=== PATIENT | female | born 1995 | race African-American/Black ===

== ENCOUNTER 2017-05-15 12:24 | Emergency (ER) | payer OTHER ==
[~2017-05-15] VITALS: Ht 172.7 cm; Wt 61.2 kg
[~2017-05-15 12:24] MED LIST: PREDNISONE 20 M20 MG PO; ULTRAM 50MG TAB50 MG PO; VENTOLIN HFA 1818 GM INH
[2017-05-15 12:44] LABS: URINE BILIRUBIN NEGATIVE (Negative); URINE BLOOD 3+ (Negative); URINE COLOR YELLOW; URINE GLUCOSE-RANDOM* NEGATIVE (Negative); URINE KETONES NEGATIVE (Negative); URINE LEUKOCYTES-REFLEX NEGATIVE (Negative); URINE PROTEIN (DIPSTICK) NEGATIVE (Negative); URINE SPECIFIC GRAVITY 1.025 (1.003-1.035); URINE UROBILINOGEN 0.2 E.U./dl (0.2-1.0)
[2017-05-15] MEDS ORDERED: ALBUTEROL2.5 MG/31 INH (12:51)
[2017-05-15 12:56] LABS: SQUAMOUS 4-10 Moderate /LPF (0-3)
[2017-05-15 12:57] LABS: CASTS None Seen /LPF (None Seen)
[2017-05-15 12:58] LABS: CRYSTALS None Seen /LPF (None Seen); URINE RBC 3-10 Few /HPF (0-2); URINE WBC-REFLEX 6-15 Few /HPF (0-5)
[2017-05-15 13:03] LABS: ABSOLUTE NEUTROPHILS 3.3 thou/uL (1.4-8.2); BASOPHILS 0.7 % (0.0-2.0); EOSINOPHILS 3.7 % (0.0-3.0); HEMATOCRIT 39.2 % (37.0-47.0); MANUAL DIFF NO; MCH 31.7 pg (26.0-34.0); MCHC 33.1 g/dL (28.0-37.0); MCV 95.9 fL (80.0-100.0); PLATELET COUNT 352 thou/uL (150-400); POLYS 47.6 % (36.0-66.0); RBC 4.09 mil/uL (4.20-5.00); RDW 12.9 % (10.5-14.5); WBC 6.9 thou/uL (4.0-11.0)
[2017-05-15 13:10] LABS: CALCIUM 9.6 mg/dL (8.5-10.1); POTASSIUM 3.9 mmol/L (3.5-5.1)
[2017-05-15 13:16] LABS: ALBUMIN 3.9 g/dL (3.4-5.0); TOTAL BILIRUBIN 0.4 mg/dL (<0.1-1.0); TOTAL PROTEIN 8.2 g/dL (6.4-8.2)
[2017-05-15] MEDS ORDERED: BENTYL 20 MG TA20 M1 PO (13:27)
[2017-05-15] MEDS ORDERED: MOBIC15 MG PO (13:27)
[2017-05-15 14:00] VITALS: BP 130/78
[2017-05-16 19:07] LABS: CHLAMYDIA TRACHOMATIS-PCR Negative (Negative); NEISSERIA GONORRHEA-PCR Negative (Negative)
== END 2017-05-15 14:01 | disposition home or self-care (01) ==
LOC: ER 12:24
PROVIDERS: Physician Assistant
DX: N93.8 Other specified abnormal uterine and vaginal bleeding (principal); R10.30 Lower abdominal pain, unspecified; J45.909 Unspecified asthma, uncomplicated; F10.99 Alcohol use, unspecified with unspecified alcohol-induced disorder

== ENCOUNTER 2017-06-01 20:58 | Emergency (ER) | payer OTHER ==
[~2017-06-01] VITALS: Ht 172.7 cm; Wt 63.5 kg
[~2017-06-01 20:58] MED LIST changes: +ALBUTEROL2.5 MG/31 INH; +BENTYL 20 MG TA20 M1 PO; +MOBIC15 MG PO
[2017-06-01 22:07] LABS: URINE BILIRUBIN NEGATIVE (Negative); URINE BLOOD NEGATIVE (Negative); URINE COLOR YELLOW; URINE GLUCOSE-RANDOM* NEGATIVE (Negative); URINE KETONES NEGATIVE (Negative); URINE LEUKOCYTES-REFLEX 1+ (Negative); URINE PROTEIN (DIPSTICK) NEGATIVE (Negative); URINE UROBILINOGEN 0.2 E.U./dl (0.2-1.0)
[2017-06-01] MEDS ORDERED: TRAMADOL 50 MG50 MG PO (22:25)
[2017-06-01] MEDS ORDERED: NAPROSYN500 MG PO (22:25)
[2017-06-01] MEDS ORDERED: DOXYCYCLINE 10100 MG PO (22:25)
[2017-06-01 22:31] LABS: SQUAMOUS 4-10 Moderate /LPF (0-3)
[2017-06-01 22:32] LABS: AMORPHOUS URATES Few /LPF (None Seen); CASTS None Seen /LPF (None Seen); URINE RBC None Seen /HPF (0-2); URINE WBC-REFLEX 0-5 Rare /HPF (0-5)
[2017-06-01 22:39] VITALS: BP 118/89
== END 2017-06-01 22:47 | disposition home or self-care (01) ==
LOC: ER 20:58
PROVIDERS: Emergency Medicine
DX: Z20.2 Contact with and (suspected) exposure to infections with a predominantly sexual mode of transmission (principal); R10.30 Lower abdominal pain, unspecified; G43.909 Migraine, unspecified, not intractable, without status migrainosus; J45.909 Unspecified asthma, uncomplicated; F10.99 Alcohol use, unspecified with unspecified alcohol-induced disorder

== ENCOUNTER 2017-08-12 13:33 | Emergency (ER) | payer OTHER ==
[~2017-08-12] VITALS: Ht 172.7 cm; Wt 59.0 kg
--- NOTE | ~2017-08-12 | EKG ---
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
[~2017-08-12 13:33] MED LIST changes: +DOXYCYCLINE 10100 MG PO; +NAPROSYN500 MG PO; +TRAMADOL 50 MG50 MG PO
[2017-08-12] MEDS ORDERED: PROAIR HFA8.5 GM INH (13:45)
[2017-08-12] MEDS ORDERED: PREDNISONE 20 M20 MG PO (13:45)
[2017-08-12] MEDS ORDERED: ALBUTEROL2.5 MG/31 INH (13:45)
[2017-08-12 15:32] VITALS: BP 138/67
== END 2017-08-12 15:33 | disposition home or self-care (01) ==
LOC: ER 13:33
DX: J45.901 Unspecified asthma with (acute) exacerbation (principal); F10.99 Alcohol use, unspecified with unspecified alcohol-induced disorder

== ENCOUNTER 2018-06-07 10:59 | Emergency (ER) | payer OTHER ==
[~2018-06-07] VITALS: Ht 172.7 cm; Wt 70.3 kg
[~2018-06-07 10:59] MED LIST changes: +PROAIR HFA8.5 GM INH
[2018-06-07 11:03] VITALS: BP 136/87
[2018-06-07] MEDS ORDERED: PROVENTIL HFA6.7 G1 INH (11:21)
[2018-06-07] MEDS ORDERED: PREDNISONE 20 M20 MG PO (11:21)
[2018-06-07] MEDS ORDERED: TRAMADOL 50 MG50 MG PO (11:21)
== END 2018-06-07 11:50 | disposition home or self-care (01) ==
LOC: ER 10:59
DX: J45.909 Unspecified asthma, uncomplicated (principal); G43.909 Migraine, unspecified, not intractable, without status migrainosus; F41.9 Anxiety disorder, unspecified

== ENCOUNTER 2018-09-01 10:12 | Emergency (ER) | payer OTHER ==
[~2018-09-01] VITALS: Ht 172.7 cm; Wt 61.2 kg
--- NOTE | ~2018-09-01 | EKG ---
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
[~2018-09-01 10:12] MED LIST changes: +PROVENTIL HFA6.7 G1 INH
[2018-09-01 11:16] LABS: ABSOLUTE NEUTROPHILS 7.3 thou/uL (1.4-8.2); BASOPHILS 0.6 % (0.0-2.0); EOSINOPHILS 0.8 % (0.0-3.0); HEMATOCRIT 40.8 % (37.0-47.0); HEMOGLOBIN 13.6 gm/dL (12.0-15.0); LYMPHOCYTES 10.8 % (24.0-44.0); MCH 31.9 pg (26.0-34.0); MCHC 33.3 g/dL (28.0-37.0); MCV 95.6 fL (80.0-100.0); MONOCYTES 5.9 % (1.0-8.0); PLATELET COUNT 306 thou/uL (150-400); POLYS 81.9 % (36.0-66.0); RBC 4.27 mil/uL (4.20-5.00); RDW 14.1 % (10.5-14.5); WBC 8.9 thou/uL (4.0-11.0)
[2018-09-01 11:33] LABS: CALCIUM 9.3 mg/dL (8.5-10.1); CREATININE 1.3 mg/dL (0.6-1.0); POTASSIUM 4.2 mmol/L (3.5-5.1)
[2018-09-01 11:38] LABS: ALBUMIN 4.3 g/dL (3.4-5.0); TOTAL BILIRUBIN 1.4 mg/dL (<0.1-1.0); TOTAL PROTEIN 8.1 g/dL (6.4-8.2)
[2018-09-01] MEDS ORDERED: ADVAIR HFA 230M12 GM INH (12:06)
[2018-09-01] MEDS ORDERED: PREDNISONE 20 M20 MG PO (12:06)
[2018-09-01] MEDS ORDERED: VENTOLIN HFA 1818 GM INH (12:06)
[2018-09-01 13:36] VITALS: BP 118/82
== END 2018-09-01 13:38 | disposition home or self-care (01) ==
LOC: ER 10:12
PROVIDERS: Physician Assistant
DX: J45.901 Unspecified asthma with (acute) exacerbation (principal); G43.909 Migraine, unspecified, not intractable, without status migrainosus; F41.9 Anxiety disorder, unspecified

== ENCOUNTER 2018-09-20 19:45 | Emergency (ER) | payer OTHER ==
[~2018-09-20] VITALS: Ht 160 cm; Wt 71.7 kg
[~2018-09-20 19:45] MED LIST changes: +ADVAIR HFA 230M12 GM INH
[2018-09-20] MEDS ORDERED: ALBUTEROL2.5 MG/31 INH (21:41)
[2018-09-20] MEDS ORDERED: VENTOLIN HFA 1818 GM INH (21:41)
[2018-09-20] MEDS ORDERED: PREDNISONE 20 M20 MG PO (21:41)
[2018-09-20 22:15] VITALS: BP 124/88
== END 2018-09-20 22:15 | disposition home or self-care (01) ==
LOC: ER 19:45
DX: J45.901 Unspecified asthma with (acute) exacerbation (principal); G43.909 Migraine, unspecified, not intractable, without status migrainosus; F41.9 Anxiety disorder, unspecified

== ENCOUNTER 2021-05-12 17:56 | Emergency (ER) | payer OTHER ==
[~2021-05-12] VITALS: Ht 172.7 cm; Wt 71.7 kg
[2021-05-12 20:08] LABS: ABSOLUTE NEUTROPHILS 6.5 thou/uL (1.4-8.2); BASOPHILS 0.2 % (0.0-2.0); HEMATOCRIT 37.6 % (37.0-47.0); HEMOGLOBIN 12.2 gm/dL (12.0-15.0); LYMPHOCYTES 8.2 % (24.0-44.0); MCH 31.6 pg (26.0-34.0); MCHC 32.5 g/dL (28.0-37.0); MCV 97.3 fL (80.0-100.0); MONOCYTES 4.8 % (1.0-8.0); PLATELET COUNT 325 thou/uL (150-400); POLYS 86.8 % (36.0-66.0); RBC 3.87 mil/uL (4.20-5.00); RDW 13.8 % (10.5-14.5); WBC 7.4 thou/uL (4.0-11.0)
[2021-05-12 20:24] LABS: URINE BILIRUBIN NEGATIVE (Negative); URINE BLOOD 3+ (Negative); URINE CLARITY CLOUDY; URINE COLOR YELLOW; URINE GLUCOSE-RANDOM* NEGATIVE (Negative); URINE KETONES 2+ (Negative); URINE LEUKOCYTES-REFLEX NEGATIVE (Negative); URINE NITRITE-REFLEX NEGATIVE (Negative); URINE PROTEIN (DIPSTICK) TRACE (Negative); URINE SPECIFIC GRAVITY >= 1.030 (1.005-1.035); URINE UROBILINOGEN 0.2 E.U./dl (0.2-1.0)
[2021-05-12 20:24] LABS: CREATININE 0.9 mg/dL (0.6-1.0); POTASSIUM 3.7 mmol/L (3.5-5.1)
[2021-05-12 20:30] LABS: ALBUMIN 4.2 g/dL (3.4-5.0); TOTAL BILIRUBIN 0.7 mg/dL (0.2-1.0); TOTAL PROTEIN 7.9 g/dL (6.4-8.2)
[2021-05-12 20:33] LABS: BACTERIA-REFLEX 1-9 Few /HPF (None Seen); CASTS None Seen /LPF (None Seen); CRYSTALS None Seen /LPF (None Seen); SQUAMOUS 0-3 Few /LPF (0-3); URINE RBC >20 Many /HPF (NONE SEEN); URINE WBC-REFLEX 6-15 Few /HPF (0-5)
[2021-05-12] MEDS ORDERED: ZOFRAN ODT4 MG PO (21:42)
[2021-05-12] MEDS ORDERED: CEPHALEXIN500 MG PO (21:42)
[2021-05-12] MEDS ORDERED: NORCO5 PO (21:42)
[2021-05-12 22:03] VITALS: BP 138/89
== END 2021-05-12 22:04 | disposition home or self-care (01) ==
LOC: ER 17:56
PROVIDERS: Physician Assistant
DX: N83.202 Unspecified ovarian cyst, left side (principal); N39.0 Urinary tract infection, site not specified; N21.0 Calculus in bladder; J45.909 Unspecified asthma, uncomplicated; G43.909 Migraine, unspecified, not intractable, without status migrainosus

== ENCOUNTER 2021-05-14 07:48 | Emergency (ER) | payer OTHER ==
[~2021-05-14] VITALS: Ht 175.3 cm; Wt 71.7 kg
[~2021-05-14 07:48] MED LIST changes: +CEPHALEXIN500 MG PO; +NORCO5 PO; +ZOFRAN ODT4 MG PO
[2021-05-14] MEDS ORDERED: IBUPROFEN 800800 M1 PO (11:16)
[2021-05-14 11:35] VITALS: BP 113/69
== END 2021-05-14 11:36 | disposition home or self-care (01) ==
LOC: ER 07:48
DX: N83.201 Unspecified ovarian cyst, right side (principal); J45.909 Unspecified asthma, uncomplicated; G43.909 Migraine, unspecified, not intractable, without status migrainosus; F41.9 Anxiety disorder, unspecified; Z87.442 Personal history of urinary calculi; Z87.42 Personal history of other diseases of the female genital tract; Z79.899 Other long term (current) drug therapy; Z79.2 Long term (current) use of antibiotics